=== PATIENT | female | born 1980 | race Caucasian/White ===

== ENCOUNTER 2023-04-25 14:49 | Emergency (ER) | payer MEDICAID ==
[~2023-04-25] VITALS: Ht 157.4 cm; Wt 99.8 kg
== END 2023-04-25 17:46 | disposition home or self-care (01) ==
LOC: ED 14:49
DX: S66.911A Strain of unspecified muscle, fascia and tendon at wrist and hand level, right hand, initial encounter (principal); Z88.6 Allergy status to analgesic agent; Z90.49 Acquired absence of other specified parts of digestive tract; X50.0XXA Overexertion from strenuous movement or load, initial encounter; Y93.89 Activity, other specified; Y92.89 Other specified places as the place of occurrence of the external cause; Y99.0 Civilian activity done for income or pay

== ENCOUNTER 2024-07-31 14:58 | Emergency (ER) | payer MEDICAID ==
[~2024-07-31] VITALS: Ht 157.4 cm; Wt 97.5 kg
[2024-07-31] MEDS ORDERED: Amoxicillin/Clavulanate Pota 875 MG TAB PO ONE (15:15)
[2024-07-31] MEDS ORDERED: AMOX-CLAV 875-1 EACH PO (15:16)
== END 2024-07-31 15:27 | disposition home or self-care (01) ==
LOC: ED 14:58
DX: H66.91 Otitis media, unspecified, right ear (principal); Z88.6 Allergy status to analgesic agent; Z90.49 Acquired absence of other specified parts of digestive tract

== ENCOUNTER 2024-08-20 15:51 | Emergency (ER) | payer SELFPAY ==
[~2024-08-20] VITALS: Ht 157.4 cm; Wt 97.5 kg
[~2024-08-20 15:51] MED LIST: AMOX-CLAV 875-1 EACH PO
[2024-08-20] MEDS ORDERED: AMOX-CLAV 875-1 EACH PO (16:26)
[2024-08-20] MEDS ORDERED: Amoxicillin/Clavulanate Pota 875 MG TAB PO ONE (16:30)
== END 2024-08-20 16:25 | disposition home or self-care (01) ==
LOC: ED 15:51
DX: H66.91 Otitis media, unspecified, right ear (principal); Z88.8 Allergy status to other drugs, medicaments and biological substances